=== PATIENT | female | born 1990 | race Caucasian/White ===

== ENCOUNTER 2022-09-25 21:03 | Emergency (ER) | payer OTHER, SELFPAY ==
[2022-09-25 21:07] VITALS: BP 132/68; PULSE 88; RESP 14; TEMP 36.7; O2SAT 99
--- NOTE | 2022-09-25 21:16 | DI.RAD.S_ITS ---
PROCEDURE: XR KNEE RT 3V INDICATIONS: patella dislocation s/p reduction TECHNIQUE: 3 views of the knee were acquired. COMPARISON: None. FINDINGS: Bones: No fractures or dislocations but there is a shallow trochlear groove and relative subluxation of the patella laterally. This may indicate presence of injury to the medial patellar retinaculum or a chronic morphology for this patient. No suspicious bony lesions. Soft tissues: No joint effusion. No suspicious soft tissue calcifications. IMPRESSION: MR scanning may be warranted-no fracture seen but there is significant lateral subluxation of the patella at a very shallow trochlear groove. Dictated by: Julio Arellano M.D. on 09/25/2022 at 22:28 Approved by: Julio Arellano M.D. on 09/25/2022 at 22:29
[2022-09-25] MEDS: HYDROCODONE/ACET 5/325 PREPACK 1 BOTTLE MISC (21:34)
[2022-09-25] MEDS: ONDANSETRON 4 MG ODT PREPACK 1 BOTTLE MISC (21:34)
--- NOTE | 2022-09-25 21:51 | ED.LOWEXIN ---
HPI - Extremity Injury (Lower) General Chief Complaint: Extremity Injury, Lower Stated Complaint: dislocated kneecap while rollerskating. Time Seen by Provider: 09/25/22 21:05 Source: patient and EMS Mode of arrival: EMS History of Present Illness HPI Narrative: 32-year-old female nonsmoker with noncontributory medical history presents by EMS for evaluation of right knee injury suffered just prior to arrival. She had been roller-skating and fell awkwardly landing on her knee the now complains of severe pain and limited range of motion secondary to pain with concern of kneecap dislocation. She denies other injuries such as head, neck or back. She denies any numbness, tingling or weakness. Patient is put in vacuum splint by EMS and given 100 mcg of fentanyl EN route with little to no improvement Related Data Allergies Allergy/AdvReac Type Severity Reaction Status Date / Time No Known Drug Allergies Allergy Verified 09/25/22 21:09 Review of Systems Review of Systems Narrative: GENERAL: Denies chills, fatigue, malaise, fever, sweats. HEENT: Denies sinus pain, ear pain, sore throat, difficulty swallowing, dizziness. RESPIRATORY: Denies dyspnea, cough, wheezing, hemoptysis, sputum. CARDIOVASCULAR: Denies chest pain, palpitations, orthopnea, edema, GASTROINTESTINAL: Denies nausea, vomiting, abdominal pain, diarrhea, constipation, melena. : Denies dysuria, frequency, incontinence, hematuria, urinary retention. MUSCULOSKELETAL: See HPI SKIN: Denies rash, skin lesions, or other NEUROLOGIC: Denies weakness, headache, numbness, change in speech, confusion, seizures, incoordination. PSYCHIATRIC: No concerning psychosocial issues. 12 point review of systems is negative except for those stated above Patient History Social History Smoking Status: Never smoker Smoking Status: Never smoker alcohol intake frequency: 0-2 drinks per day Substance Use Type: does not use Exam Narrative Exam Narrative: GENERAL: [32] year old patient appears stated age. Well-developed patient, in mild distress. GCS 15 HEAD: Atraumatic. Normocephalic. EYES: Pupils equal round and reactive. Extraocular motions intact. No scleral icterus. No injection or drainage. ENT: Nose without bleeding, purulent drainage. Throat without erythema, tonsillar hypertrophy or exudate. Airway patent. NECK: Trachea midline. Non tender CARDIOVASCULAR: Regular rate and rhythm without murmurs, gallops, or rubs. RESPIRATORY: Clear to auscultation. Breath sounds equal bilaterally. No wheezes, rales, or rhonchi. GASTROINTESTINAL: Abdomen soft, non-tender, nondistended. EXTREMITIES: Right knee with obvious deformity consistent with lateral patellar dislocation, limited range of motion secondary to pain, closed, isolated and neurovascularly intact.. BACK: Nontender without deformity or crepitance. No flank tenderness. NEURO: AOx3. SKIN: No rash or erythema of visible areas Initial Vital Signs Initial Vital Signs: Vital Signs Temperature 98.1 F 09/25/22 21:07 Pulse Rate 88 09/25/22 21:07 Respiratory Rate 14 09/25/22 21:07 Blood Pressure 132/68 09/25/22 21:07 Pulse Oximetry 99 09/25/22 21:07 Oxygen Delivery Method Room Air 09/25/22 21:07 Procedures Orthopedic Joint Reduction Joint #1: Time Out Performed: Yes Side: right Joint Reduction Location: knee/patella Post-reduction neuro exam: intact Post-reduction vascular: intact Post Reduction X-Ray Obtained: Yes Post Reduction X-Ray Results: reduced Patient Tolerated Procedure: Well Orthopedic Splinting/Casting Injury #1: Side: right Lower Extremity Injury Location: knee Lower Extremity Immobilizer: knee immobilizer Post splinting neuro exam: intact Post splinting vascular exam: intact Placed by: Nursing Course Orders Ordered: ED Orders 09/25/22 21:16 XR knee RT 3V Stat Discontinued Medications Hydrocodone Bitart/Acetaminophen (Hydrocodone/Acet 5/325 Prepack) 1 bottle MISC SEEINSTR ONE Stop: 09/25/22 21:17 Last Admin: 09/25/22 21:34 Dose: 1 bottle Documented By: GC Ondansetron HCl (Ondansetron 4 Mg Odt Prepack) 1 bottle MISC SEEINSTR ONE Stop: 09/25/22 21:17 Last Admin: 09/25/22 21:34 Dose: 1 bottle Documented By: GC Vital Signs Vital signs: Vital Signs - 8 hr 09/25/22 21:07 09/25/22 23:00 Temperature 98.1 F 97.7 F Pulse Rate 88 58 L Respiratory Rate 14 16 Blood Pressure 132/68 112/59 L Pulse Oximetry 99 98 Oxygen Delivery Method Room Air Room Air MDM - Extremity Injury (Lower) MDM Narrative Medical decision making narrative: [32] year old patient presents with fall resulting in patellar dislocation Multiple etiologies for patient's symptoms considered including, but not limited to: [Dislocation versus fracture versus other] No prior charts available Primary Historian: patient Imaging reviewed: Postreduction film demonstrates no obvious fracture or ongoing dislocation Patient's symptoms improved over duration of stay with above-stated therapies. Findings and discharge diagnosis discussed with patient/family followed by verbalization of understanding Return precautions discussed with patient/family whom verbalize understanding of diagnosis and plan Discharge Plan Departure Patient Disposition: Home Clinical Impression: Closed dislocation of patella Qualifiers: Encounter type: initial encounter Laterality: right Qualified Code(s): S83.004A - Unspecified dislocation of right patella, initial encounter Instructions: DI for Patellar Dislocation Activity Restrictions/Additional Instructions: *You have been diagnosed with [right patella dislocation] *What to do: *Please continue to take your regular medications as directed. [ ] New medication prescriptions sent to your pharmacy: [ ] [ ] New medication written as a paper prescription [x] Tylenol and occasional Motrin for pain *Please follow up with [ Breanne] of [facility] in 2-3 days, call for an appointment. Let them know you were seen in the Emergency Department and that we ask that you be seen in follow up. We will electronically transmit a record of today's note if your PCP is in our system *Return to Emergency Department if you should have any new, worsening or concerning symptoms, such as [worsening pain, significant swelling, cold extremities, numbness, tingling, weakness or other bothersome symptoms Splint Care: Wear the knee immobilizer for comfort for the better part of the week, but remember (as we discussed) please consider taking it off a few times per day to take your knee through a range of motion to help prevent it from becoming stiff Referrals: Jami Raymundo MD [Physician] - Stand Alone Forms: Patient Portal/API
[2022-09-25 23:00] VITALS: BP 112/59; PULSE 58; RESP 16; TEMP 36.5; O2SAT 98
== END 2022-09-25 23:02 | disposition home or self-care (01) ==
PROVIDERS: Emergency Provider Emergency Medicine
DX: S83.004A Unspecified dislocation of right patella, initial encounter (principal); W18.30XA Fall on same level, unspecified, initial encounter; Y93.51 Activity, roller skating (inline) and skateboarding
CPT/HCPCS: 27560; 73562; 99282; 99283

== ENCOUNTER → 2025-01-29 08:22 | Outpatient (CLI) | payer OTHER, SELFPAY ==
--- NOTE | 2025-01-29 08:25 | DI.ECHO.S_ITS ---
[facility]---------+ [facility] : : [id number] : : [id number] : : Phone: [phone] Echocardiogram Report + + :Name: SAMMIE AGARWAL Study Date: 01/29/2025 Height: 56 in : :Hospital ReadingLocation: Weight: 135 lb : : Gender: Female BSA: 1.5 m2 : :: 1990 Age: 34 yrs BP: 134/95 mmHg: :Reason For Study: PULMONARY VALVE STENOSIS : :Ordering Physician: SILVANO, : :CON Performed By: Saurabh Chisholm : :Referring: MAUREEN SCHAEFER : + + Interpretation Summary The left ventricle is mild-moderately dilated. The ejection fraction is estimated to be 50-55%. Diastolic function is indeterminate. The right ventricle is normal size. Right ventricular systolic function is mildly reduced. The aortic valve is not well visualized. There does appear to be decent aortic valve leaflet excursion as noted in the apical images. Tricuspid leaflets are thickened. The pulmonic valve is not well visualized. Possible prosthetic pulmonic valve with mildly elevated gradient. Possible dilation of the aortic root as seen in the apical 5 and apical 3 chamber views only. No significant turbulent flow seen in the proximal portion of the descending thoracic aorta, just distal to the arch. Peak velocity in this portion of the vessel is 1.1 m/s however the pulse-wave Doppler is not aligned in the direction of the more distal portion of the proximal descending aorta. Procedure: A two-dimensional transthoracic echocardiogram with color flow and Doppler was performed. The study quality was technically difficult. There is no prior echocardiogram noted for this patient. The patient was in normal sinus rhythm during the exam. Left Ventricle: The left ventricle is mild-moderately dilated. There is normal left ventricular wall thickness. There is no ventricular septal defect visualized. The ejection fraction is estimated to be 50-55%. Septal motion is consistent with post-operative state. Diastolic function is indeterminate. Right Ventricle: The right ventricle is normal size. Right ventricular systolic function is mildly reduced. Atria: The left atrial size is normal. Right atrial size is normal. There is no Doppler evidence for an interatrial shunt. The interatrial septum bows toward right atrium consistent with elevated left atrial pressure. Mitral Valve: The mitral valve leaflets appear normal. There is no evidence of stenosis, fluttering, or prolapse. There is no mitral regurgitation noted. Aortic Valve: The aortic valve is not well visualized. There does appear to be a decent aortic valve leaflet excursion as noted in the apical images. The peak aortic velocity is 1.3 m/sec. The aortic valve mean gradient is 3.8 mmHg. No aortic regurgitation is present. Tricuspid Valve: Tricuspid leaflets are thickened. There is trace tricuspid regurgitation. Pulmonic Valve: The pulmonic valve is not well visualized. Possible prosthetic pulmonic valve. Pulmonic valve mean PG 24 mmHg, peak velocity 2.9 m/s. There is trace pulmonic regurgitation. Great Vessels: Possible dilation of the aortic root as seen in the apical 5 and apical 3 chamber views only. The ascending aorta could not be visualized. No significant turbulent flow seen in the proximal portion of the descending thoracic aorta, just distal to the arch. Peak velocity in this portion of the vessel is 1.1 m/s however the pulse-wave Doppler is not aligned in the direction of the more distal portion of the proximal descending aorta. The pulmonary is not well visualized. The IVC is of normal diameter and collapses greater than 50% with a sniff. This suggests a low right atrial pressure of 3 mm Hg. Pericardium/ Pleura There is no pericardial effusion. There is no pleural effusion. MMode/2D Measurements & Calculations LVIDd: 5.9 cm LVOT diam: 1.9 cm LVIDs: 4.7 cm Ao Arch Diam (Prox Trans): 1.0 cm FS: 19.9 % EPSS: 0.61 cm IVSd: 0.98 cm LVPWd: 0.95 cm LV venegas. diameter/BSA (cm/m^2): 3.9 LV sys. diameter/BSA (cm/m^2): 3.2 LA A2 area: 16.6 cm2 RA long axis: 4.0 cm LA A4 area: 13.9 cm2 RA area: 12.5 cm2 LA length (vol): 5.3 cm RA vol: 33.1 ml LA vol: 36.8 ml RA : 22.0 ml/m2 LA vol index: 24.5 ml/m2 IVC diam: 1.4 cm RVD1 (basal): 3.8 cm RVD2 (mid): 3.1 cm TAPSE: 1.5 cm Doppler Measurements & Calculations Ao V2 max: 129.0 cm/sec LVOT Max Dionte: 114.0 cm/sec Ao V2 mean: 92.5 cm/sec LV V1 max P.2 mmHg Ao max P.7 mmHg LV V1 VTI: 21.3 cm Ao mean P.8 mmHg HERMILA(I,D): 2.6 cm2 Ao V2 VTI: 23.2 cm HERMILA(V,D): 2.5 cm2 sev ratio: 0.92 HERMILA indexed to BSA (cm^2/m^2): 1.7 MV E max dionte: 73.6 cm/sec TR max dionte: 287.5 cm/sec MV A max dionte: 78.6 cm/sec TR max P.1 mmHg MV E/A: 0.94 PA V2 max: 293.2 cm/sec Med Peak E' Dionte: 7.1 cm/sec PA V2 mean: 232.8 cm/sec E/E' med: 10.4 PA mean P.7 mmHg Lat Peak E' Dionte: 7.8 cm/sec PA pr(Accel): 20.8 mmHg E/E' lat: 9.4 E/e' average: 9.9 MV dec time: 0.14 sec SV(LVOT): 60.1 ml Reading Physician:05:49 PM
== END ==
PROVIDERS: Referring Provider Internal Medicine Cardiovascular Disease; Visit Provider Internal Medicine Cardiovascular Disease
DX: Q22.1 Congenital pulmonary valve stenosis (principal); Q96.9 Turner's syndrome, unspecified; I35.0 Nonrheumatic aortic (valve) stenosis; Q25.1 Coarctation of aorta
CPT/HCPCS: 93306